=== PATIENT | female | born 1975 | race American Indian/Alaskan Native ===

== ENCOUNTER 2016-09-10 17:23 | Emergency (ER) | payer MEDICAID ==
[2016-09-10 18:57] LABS: Basophils % (Auto) 1.2 % (0.0-1.8); Eosinophils % (Auto) 2.2 % (0.0-4.3); Hematocrit 35.2 % (30.3-42.9); Hemoglobin 11.6 gm/dl (10.1-14.3); Mean Corpuscular HGB Conc 33 % (30-34); Mean Corpuscular Volume 78 fl (79-97); Platelet Count 239 K/mm3 (140-440); White Blood Count 8.3 K/mm3 (4.5-11.0)
[2016-09-10 18:58] LABS: Mean Corpuscular Hemoglobin 26 pg (28-32)
[2016-09-10 19:05] LABS: Alanine Aminotransferase 8 units/L (7-56); Albumin 4.1 g/dL (3.9-5); Albumin/Globulin Ratio 1.2 %; Alkaline Phosphatase 69 units/L (35-129); Anion Gap 18 mmol/L; Blood Urea Nitrogen 11 mg/dL (7-17); Calcium 9.2 mg/dL (8.4-10.2); Carbon Dioxide 25 mmol/L (22-30); Chloride 102.1 mmol/L (98-107); Glucose 96 mg/dL (65-100); Lipase 39 units/L (13-60); Potassium 4.2 mmol/L (3.6-5.0); Sodium 141 mmol/L (137-145); Total Protein 7.4 g/dL (6.3-8.2)
[2016-09-10 19:54] LABS: Bilirubin,Urine NEG (Negative); Blood,Urine NEG (Negative); Ketones,Urine NEG (Negative); Leukocyte Esterase,Urine NEG (Negative); Mucus,Urine FEW /HPF; Nitrite,Urine NEG (Negative); Protein,Urine <15 mg/dL mg/dL (Negative); Urobilinogen,Urine < 2.0 mg/dL (<2.0)
--- NOTE | 2016-09-10 23:18 | Emergency Department Report ---
ED Abdominal Pain HPI - General Chief Complaint: Abdominal Pain Stated Complaint: ABD PAIN/LIGHT HEADED/VAG DISCHARGE Time Seen by Provider: 09/10/16 22:23 Source: patient, RN notes reviewed Mode of arrival: Ambulatory Limitations: No Limitations - History of Present Illness Initial Comments: This is a 41-year-old female. She is previously unknown to me. She does not have a local primary care doctor. She is being treated empirically for seizures , but does not have a formal diagnosis of epilepsy. She also has a history of asthma. The patient presents to the ER with bilateral lower quadrant abdominal pain. The pain started on Thursday night. It is constant. It is sharp in nature. It increases with palpation and decreases with rest. There is no nausea, vomiting or diarrhea. There are no irritative or obstructive urinary symptoms. No fevers or chills. No chest pain or shortness of breath. Positive new onset vaginal discharge. She is sexually active with a male partner, who intermittently uses condoms. MD Complaint: abdominal pain -: Gradual Location: LLQ, RLQ Radiation: none Migration to: no migration Severity: mild Severity scale (0 -10): 7 Quality: cramping Consistency: constant Improves With: rest Worsens With: movement - Related Data Home Medications Medication Instructions Recorded Confirmed Last Taken ALBUTEROL NEB's [Proventil] 2.5 mg IH TID PRN 09/10/16 09/10/16 08/23/16 00:00 Divalproex Sodium [Divalproex 500 mg PO BID 09/10/16 09/10/16 09/10/16 08:00 Sodium ER] Zonisamide 100 mg PO DAILY 09/10/16 09/10/16 09/09/16 21:00 Previous Rx's Medication Instructions Recorded Last Taken Type Dicyclomine [Bentyl] 10 mg PO QID PRN #20 capsule 09/11/16 Unknown Rx Doxycycline [Vibramycin] 100 mg PO Q12HR #28 capsule 09/11/16 Unknown Rx Ondansetron [Zofran Odt] 4 mg PO QID PRN #20 tab.rapdis 09/11/16 Unknown Rx oxyCODONE [Roxicodone] 5 mg PO Q6HR PRN #15 tablet 09/11/16 Unknown Rx Allergies Allergy/AdvReac Type Severity Reaction Status Date / Time aspirin Allergy Anaphylaxis Verified 07/19/17 23:00 meperidine HCl [From Demerol] Allergy Anaphylaxis Verified 09/10/16 23:00 ED Review of Systems ROS: Stated complaint: ABD PAIN/LIGHT HEADED/VAG DISCHARGE Other details as noted in HPI Constitutional: denies: fever Eyes: denies: vision change ENT: denies: epistaxis Respiratory: denies: cough Cardiovascular: denies: chest pain Gastrointestinal: abdominal pain Genitourinary: discharge Musculoskeletal: denies: arthralgia Skin: denies: lesions Neurological: denies: weakness ED Past Medical Hx - Past Medical History Previous Medical History?: Yes Hx Seizures: Yes Hx Asthma: Yes - Surgical History Past Surgical History?: Yes Additional Surgical History: x 3 - Social History Smoking Status: Current Every Day Smoker Substance Use Type: None - Medications Home Medications: Home Medications Medication Instructions Recorded Confirmed Last Taken Type ALBUTEROL NEB's [Proventil] 2.5 mg IH TID PRN 09/10/16 09/10/16 08/23/16 00:00 History Divalproex Sodium [Divalproex 500 mg PO BID 09/10/16 09/10/16 09/10/16 08:00 History Sodium ER] Zonisamide 100 mg PO DAILY 09/10/16 09/10/16 09/09/16 21:00 History Dicyclomine [Bentyl] 10 mg PO QID PRN #20 capsule 09/11/16 Unknown Rx Doxycycline [Vibramycin] 100 mg PO Q12HR #28 capsule 09/11/16 Unknown Rx Ondansetron [Zofran Odt] 4 mg PO QID PRN #20 tab.rapdis 09/11/16 Unknown Rx oxyCODONE [Roxicodone] 5 mg PO Q6HR PRN #15 tablet 09/11/16 Unknown Rx ED Physical Exam - General Limitations: No Limitations General appearance: alert, in no apparent distress - Head Head exam: Present: atraumatic, normocephalic - Eye Eye exam: Present: normal appearance, EOMI. Absent: nystagmus - ENT ENT exam: Present: normal exam, normal orophraynx, mucous membranes moist, normal external ear exam - Neck Neck exam: Present: normal inspection, full ROM. Absent: tenderness, meningismus - Respiratory Respiratory exam: Present: normal lung sounds bilaterally. Absent: respiratory distress, wheezes, rales, rhonchi, stridor, chest wall tenderness - Cardiovascular Cardiovascular Exam: Present: regular rate, normal rhythm, normal heart sounds. Absent: bradycardia, tachycardia, irregular rhythm, systolic murmur, diastolic murmur, rubs, gallop - GI/Abdominal GI/Abdominal exam: Present: soft, normal bowel sounds. Absent: distended, tenderness, guarding, rebound, rigid, pulsatile mass - External exam: Present: normal external exam Speculum exam: Present: normal speculum exam, cervical discharge. Absent: vaginal bleeding, foreign body Bi-manual exam: Present: cervical motion tendernes, adnexal tenderness, other ( escorted by ER nurse EVIN [place]) - Extremities Exam Extremities exam: Present: normal inspection, full ROM, normal capillary refill. Absent: pedal edema, joint swelling, calf tenderness - Back Exam Back exam: Present: normal inspection, full ROM. Absent: tenderness, CVA tenderness (R), CVA tenderness (L), muscle spasm, paraspinal tenderness, vertebral tenderness - Neurological Exam Neurological exam: Present: alert, oriented X3, normal gait, other (Extraocular movements intact. Tongue midline. No facial droop. Facial sensation intact to light touch in the V1, V2, V3 distribution bilaterally. 5 and 5 strength in 4 extremities.. Sensation is intact to light touch in 4 extremities.). Absent : motor sensory deficit - Psychiatric Psychiatric exam: Present: normal affect, normal mood - Skin Skin exam: Present: warm, dry, intact, normal color. Absent: rash ED Course Vital Signs 09/10/16 09/10/16 09/11/16 18:20 22:22 00:38 Temperature 98.4 F Pulse Rate 96 H 92 H 94 H Respiratory 16 16 20 Rate Blood Pressure 160/86 Blood Pressure 135/88 143/78 [Right] O2 Sat by Pulse 100 100 99 Oximetry 09/11/16 02:55 Temperature Pulse Rate 65 Respiratory 16 Rate Blood Pressure Blood Pressure 105/49 [Right] O2 Sat by Pulse 99 Oximetry - Reevaluation(s) Reevaluation #1: 09/10/16 23:18 Filled ID Written Drug QTY Days Prescriber Rx # Pharmacy * Refills MME/D Pymt Type LEGAL TRANSCRIPTIONIST 08/19/2016 1 08/19/2016 HYDROCODON-ACETAMINOPHN 10-325 14.0 3 AA [facility] [id number] JUNIE ([id number]) 0 46.667 Medicaid G ED Medical Decision Making - Lab Data Result diagrams: 09/10/16 18:27 09/10/16 18:27 Vital Signs 09/10/16 09/10/16 09/11/16 18:20 22:22 00:38 Temperature 98.4 F Pulse Rate 96 H 92 H 94 H Respiratory 16 16 20 Rate Blood Pressure 160/86 Blood Pressure 135/88 143/78 [Right] O2 Sat by Pulse 100 100 99 Oximetry Lab Results 09/10/16 09/10/16 09/10/16 Range/Units 18:27 18:27 19:30 WBC 8.3 (4.5-11.0) K/mm3 RBC 4.50 (3.65-5.03) M/mm3 Hgb 11.6 (10.1-14.3) gm/dl Hct 35.2 (30.3-42.9) % MCV 78 L (79-97) fl MCH 26 L (28-32) pg MCHC 33 (30-34) % RDW 17.0 H (13.2-15.2) % Plt Count 239 (140-440) K/mm3 Lymph % (Auto) 30.6 (13.4-35.0) % [place] % (Auto) 12.8 H (0.0-7.3) % Eos % (Auto) 2.2 (0.0-4.3) % Baso % (Auto) 1.2 (0.0-1.8) % Lymph # 2.5 (1.2-5.4) K/mm3 [place] # 1.1 H (0.0-0.8) K/mm3 Eos # 0.2 (0.0-0.4) K/mm3 Baso # 0.1 (0.0-0.1) K/mm3 Seg Neutrophils % 53.2 (40.0-70.0) % Seg Neutrophils # 4.4 (1.8-7.7) K/mm3 Sodium 141 (137-145) mmol/L Potassium 4.2 (3.6-5.0) mmol/L Chloride 102.1 (98-107) mmol/L Carbon Dioxide 25 (22-30) mmol/L Anion Gap 18 mmol/L BUN 11 (7-17) mg/dL Creatinine 1.0 (0.7-1.2) mg/dL Estimated GFR > 60 ml/min BUN/Creatinine Ratio 11.00 % Glucose 96 (65-100) mg/dL Calcium 9.2 (8.4-10.2) mg/dL Total Bilirubin 0.30 (0.1-1.2) mg/dL AST 8 (5-40) units/L ALT 8 (7-56) units/L Alkaline Phosphatase 69 (35-129) units/L Total Protein 7.4 (6.3-8.2) g/dL Albumin 4.1 (3.9-5) g/dL Albumin/Globulin Ratio 1.2 % Lipase 39 (13-60) units/L Urine Color Yellow (Yellow) Urine Turbidity Clear (Clear) Urine pH 5.0 (5.0-7.0) Ur Specific [place] 1.021 (1.003-1.030) Urine Protein <15 mg/dl (Negative) mg/dL Urine Glucose (UA) Neg (Negative) mg/dL Urine Ketones Neg (Negative) mg/dL Urine Blood Neg (Negative) Urine Nitrite Neg (Negative) Urine Bilirubin Neg (Negative) Urine Urobilinogen < 2.0 (<2.0) mg/dL Ur Leukocyte Esterase Neg (Negative) Urine WBC (Auto) 3.0 (0.0-6.0) /HPF Urine RBC (Auto) 3.0 (0.0-6.0) /HPF U Epithel Cells (Auto) 2.0 (0-13.0) /HPF Urine Mucus Few /HPF Urine HCG, Qual (Negative) 09/10/16 Range/Units Unknown WBC (4.5-11.0) K/mm3 RBC (3.65-5.03) M/mm3 Hgb (10.1-14.3) gm/dl Hct (30.3-42.9) % MCV (79-97) fl MCH (28-32) pg MCHC (30-34) % RDW (13.2-15.2) % Plt Count (140-440) K/mm3 Lymph % (Auto) (13.4-35.0) % [place] % (Auto) (0.0-7.3) % Eos % (Auto) (0.0-4.3) % Baso % (Auto) (0.0-1.8) % Lymph # (1.2-5.4) K/mm3 [place] # (0.0-0.8) K/mm3 Eos # (0.0-0.4) K/mm3 Baso # (0.0-0.1) K/mm3 Seg Neutrophils % (40.0-70.0) % Seg Neutrophils # (1.8-7.7) K/mm3 Sodium (137-145) mmol/L Potassium (3.6-5.0) mmol/L Chloride (98-107) mmol/L Carbon Dioxide (22-30) mmol/L Anion Gap mmol/L BUN (7-17) mg/dL Creatinine (0.7-1.2) mg/dL Estimated GFR ml/min BUN/Creatinine Ratio % Glucose (65-100) mg/dL Calcium (8.4-10.2) mg/dL Total Bilirubin (0.1-1.2) mg/dL AST (5-40) units/L ALT (7-56) units/L Alkaline Phosphatase (35-129) units/L Total Protein (6.3-8.2) g/dL Albumin (3.9-5) g/dL Albumin/Globulin Ratio % Lipase (13-60) units/L Urine Color (Yellow) Urine Turbidity (Clear) Urine pH (5.0-7.0) Ur Specific [place] (1.003-1.030) Urine Protein (Negative) mg/dL Urine Glucose (UA) (Negative) mg/dL Urine Ketones (Negative) mg/dL Urine Blood (Negative) Urine Nitrite (Negative) Urine Bilirubin (Negative) Urine Urobilinogen (<2.0) mg/dL Ur Leukocyte Esterase (Negative) Urine WBC (Auto) (0.0-6.0) /HPF Urine RBC (Auto) (0.0-6.0) /HPF U Epithel Cells (Auto) (0-13.0) /HPF Urine Mucus /HPF Urine HCG, Qual Negative (Negative) - Radiology Data Radiology results: report reviewed, image reviewed - Medical Decision Making Differential diagnosis: Ovarian cyst, ovarian torsion, pelvic inflammatory disease, constipation, appendicitis Assessment and plan: 41-year-old female with new onset lower abdominal pain, cervical motion tenderness, bilateral adnexal tenderness. Pelvic ultrasound demonstrates bilateral ovarian vascular flow, no discrete uterine lesions, prominent ovarian cyst. Laboratory studies reviewed and are unremarkable. CT scan of the abdomen and pelvis is pending. Pelvic inflammatory disease is currently the working diagnosis. I have looked up the patient's on the [place] prescription drug database, and she has had only 1 narcotic prescription filled within the past 2 years that I can tell. Critical care attestation.: If time is entered above; I have spent that time in minutes in the direct care of this critically ill patient, excluding procedure time. ED Disposition Clinical Impression: Abdominal pain Disposition: DC-01 TO HOME OR SELFCARE Is pt being admited?: No Does the pt Need Aspirin: No Condition: Good Instructions: Pelvic Inflammatory Disease (ED) Additional Instructions: As we discussed, your laboratory studies appeared to be within normal limits. You are not . The CAT scan your abdomen/pelvis did not demonstrate any acute disease or pathology that would require emergency surgery, or antibiotic therapy. The CT scan demonstrated an incidental stone within the biliary system, and this should be followed up by a visiting nurse within the next [address] Cool is a local visiting nurse. Avoid consumption of heavy foods, spicy foods, rich foods and fatty foods. Given all this, you'll be treated empirically for disease called pelvic inflammatory disease. We typically treat young females with unexplained lower abdominal pain to protect your ability to have children safely in the future. Cultures were sent today, and results will be available next 3-5 days. Please have your primary care doctor call the medical records department to obtain your culture results. Take the antibiotic therapy as directed. Take the nausea medication and pain medication as directed. I recommend outpatient testing for sexually transmitted diseases, including hepatitis, syphilis and HIV. I also recommend that you abstain from sexual activity until you have completed her antibiotic therapy, a physician states that it is safe for you to resume sexual activity, and any partners that you have been sexually active with have been tested/treated/evaluated for sexual transmitted diseases. Please follow-up with physician within 3-5 days. I recommend that you return to the ER right away with worsening pain, migration of pain, intractable nausea/vomiting, inability tolerate liquid feeds. Prescriptions: Dicyclomine [Bentyl] 10 mg PO QID PRN #20 capsule PRN Reason: Pain Doxycycline [Vibramycin] 100 mg PO Q12HR #28 capsule Ondansetron [Zofran Odt] 4 mg PO QID PRN #20 tab.rapdis PRN Reason: Nausea oxyCODONE [Roxicodone] 5 mg PO Q6HR PRN #15 tablet PRN Reason: Pain Referrals: [facility] [Provider Group] - 3-5 Days [facility] [Provider Group] - 3-5 Days CHAIRA COOL MD [Staff Physician] - 3-5 Days [facility]IMARY [facility] [Primary Care Provider] - 3-5 Days
[2016-09-10] MEDS ORDERED: ZOFRAN IV ONE (23:46)
[2016-09-10] MEDS ORDERED: MORPHINE IV ONE (23:46)
[2016-09-10] MEDS ORDERED: NACL 0.9% 1000 ML 1,000 ML IV ONE (23:46)
[2016-09-11] MEDS ORDERED: NACL ONE (00:05)
--- NOTE | 2016-09-11 00:42 | Ultrasound Report ---
FINAL REPORT EXAM: US PELVIS DUPLEX DOPPLER COMP HISTORY: pid vs cyst vs appy. pelvic pain COMPARISON: None available. TECHNIQUE: Several real-time grayscale and color Doppler images were obtained. Transabdominal and transvaginal exam. Spectral analysis. FINDINGS: The uterus measures 10.7 x 5.5 x 6.2 centimeters. Endometrial stripe measures 6 millimeters. This is within normal limits. No discrete uterine lesions. The right ovary measures 3.6 x 5.1 x 4.5 centimeters. Within the right ovary, there is a prominent cystic structure measuring 5.1 x 3.5 x 4.0 centimeters. This may have some proteinaceous debris. Left ovary measures 2.7 x 2.0 x 2.3 centimeters. There is vascular flow to the bilateral ovaries with spectral analysis demonstrating arterial waveforms. No adnexal masses. No free fluid. IMPRESSION: Prominent right ovarian cyst measuring 5.1 centimeters. This may have a small amount of proteinaceous debris. Vascular flow to the bilateral ovaries. No adnexal masses. No discrete uterine lesions.
--- NOTE | 2016-09-11 01:35 | Cat Scan Report ---
FINAL REPORT EXAM: CT ABDOMEN PELVIS W CON HISTORY: abd pain with discharge x 1 week pid vs cyst vs appy COMPARISON: Pelvic ultrasound from the same date. Additional sagittal and coronal reformatted images were obtained. TECHNIQUE: Contiguous axial images were obtained. Administration of IV contrast given per institution protocol. Images submitted for interpretation. 100 cc Omnipaque 350. FINDINGS: Lung bases are clear. No calcified gallstones. Within the mid to distal common bile duct there is a radiopaque calculus measuring 7 x 4 millimeters in axial dimension. This causes mild dilatation the common bile duct measuring up to 9 millimeters. No inflammatory changes the gallbladder. No pancreatic ductal dilatation. Liver, spleen, pancreas and adrenal glands are grossly unremarkable. No solid renal lesion. No hydronephrosis. Aorta and IVC are normal in caliber. Urinary bladder, uterus, left ovary grossly unremarkable. Re-demonstration of right ovarian cystic structure measuring 5.6 x 5.1 centimeters. This has a simple appearance by CT. There are few pelvic phleboliths. No free fluid or lymphadenopathy in the pelvic cavity. The appendix is normal in caliber. Moderate stool in the colon. Large and small bowel loops normal in caliber. Bony pelvis and lumbar spine are grossly intact. IMPRESSION: 7 x 4 millimeter choledocholith in the mid to distal common bile duct causing mild dilatation of the biliary tree. No calcified gallstones are gross inflammatory changes the gallbladder. Re-demonstration of 5.6 x 5.1 centimeter right ovarian cystic structure. This has a simple appearance by CT. No other acute findings. Large and small bowel loops normal in caliber. The appendix is normal in caliber.
[2016-09-11] MEDS ORDERED: VIBRAMYCIN PO ONE (02:18)
[2016-09-11] MEDS ORDERED: NORCO 5/325 PO ONE (02:18)
--- NOTE | 2016-09-11 02:33 | Event Note ---
Date: 09/11/16 Due to technical issues, I am unable to amend and adjust the current medical chart. CT scan demonstrates no evidence of tubo-ovarian abscess, or appendicitis. The patient reports her pain is improved. She is tolerating liquid feeds. She is afebrile, tachycardia has resolved, and belly soft on repeat examination. CT scan did demonstrate incidental choledochal stone, without transaminitis, pancreatitis. This finding was discussed with the automation application engineer on-call, Dr. Gavin. The patient does not have any right upper quadrant pain, and her laboratory studies regarding the liver and biliary system are unremarkable. This is most likely an incidental finding. Dr. Gavin agrees with the patient is suitable to follow-up as an outpatient this incidental finding. The patient will be discharged with pain medication, nausea medication, and she'll be treated him. Pelvic inflammatory disease. Return precautions are reviewed. Vital Signs 09/10/16 09/10/16 09/11/16 18:20 22:22 00:38 Temperature 98.4 F Pulse Rate 96 H 92 H 94 H Respiratory 16 16 20 Rate Blood Pressure 160/86 Blood Pressure 135/88 143/78 [Right] O2 Sat by Pulse 100 100 99 Oximetry Lab Results 09/10/16 09/10/16 09/10/16 Range/Units 18:27 18:27 19:30 WBC 8.3 (4.5-11.0) K/mm3 RBC 4.50 (3.65-5.03) M/mm3 Hgb 11.6 (10.1-14.3) gm/dl Hct 35.2 (30.3-42.9) % MCV 78 L (79-97) fl MCH 26 L (28-32) pg MCHC 33 (30-34) % RDW 17.0 H (13.2-15.2) % Plt Count 239 (140-440) K/mm3 Lymph % (Auto) 30.6 (13.4-35.0) % [place] % (Auto) 12.8 H (0.0-7.3) % Eos % (Auto) 2.2 (0.0-4.3) % Baso % (Auto) 1.2 (0.0-1.8) % Lymph # 2.5 (1.2-5.4) K/mm3 [place] # 1.1 H (0.0-0.8) K/mm3 Eos # 0.2 (0.0-0.4) K/mm3 Baso # 0.1 (0.0-0.1) K/mm3 Seg Neutrophils % 53.2 (40.0-70.0) % Seg Neutrophils # 4.4 (1.8-7.7) K/mm3 Sodium 141 (137-145) mmol/L Potassium 4.2 (3.6-5.0) mmol/L Chloride 102.1 (98-107) mmol/L Carbon Dioxide 25 (22-30) mmol/L Anion Gap 18 mmol/L BUN 11 (7-17) mg/dL Creatinine 1.0 (0.7-1.2) mg/dL Estimated GFR > 60 ml/min BUN/Creatinine Ratio 11.00 % Glucose 96 (65-100) mg/dL Calcium 9.2 (8.4-10.2) mg/dL Total Bilirubin 0.30 (0.1-1.2) mg/dL AST 8 (5-40) units/L ALT 8 (7-56) units/L Alkaline Phosphatase 69 (35-129) units/L Total Protein 7.4 (6.3-8.2) g/dL Albumin 4.1 (3.9-5) g/dL Albumin/Globulin Ratio 1.2 % Lipase 39 (13-60) units/L Urine Color Yellow (Yellow) Urine Turbidity Clear (Clear) Urine pH 5.0 (5.0-7.0) Ur Specific [place] 1.021 (1.003-1.030) Urine Protein <15 mg/dl (Negative) mg/dL Urine Glucose (UA) Neg (Negative) mg/dL Urine Ketones Neg (Negative) mg/dL Urine Blood Neg (Negative) Urine Nitrite Neg (Negative) Urine Bilirubin Neg (Negative) Urine Urobilinogen < 2.0 (<2.0) mg/dL Ur Leukocyte Esterase Neg (Negative) Urine WBC (Auto) 3.0 (0.0-6.0) /HPF Urine RBC (Auto) 3.0 (0.0-6.0) /HPF U Epithel Cells (Auto) 2.0 (0-13.0) /HPF Urine Mucus Few /HPF Urine HCG, Qual (Negative) 09/10/16 Range/Units Unknown WBC (4.5-11.0) K/mm3 RBC (3.65-5.03) M/mm3 Hgb (10.1-14.3) gm/dl Hct (30.3-42.9) % MCV (79-97) fl MCH (28-32) pg MCHC (30-34) % RDW (13.2-15.2) % Plt Count (140-440) K/mm3 Lymph % (Auto) (13.4-35.0) % [place] % (Auto) (0.0-7.3) % Eos % (Auto) (0.0-4.3) % Baso % (Auto) (0.0-1.8) % Lymph # (1.2-5.4) K/mm3 [place] # (0.0-0.8) K/mm3 Eos # (0.0-0.4) K/mm3 Baso # (0.0-0.1) K/mm3 Seg Neutrophils % (40.0-70.0) % Seg Neutrophils # (1.8-7.7) K/mm3 Sodium (137-145) mmol/L Potassium (3.6-5.0) mmol/L Chloride (98-107) mmol/L Carbon Dioxide (22-30) mmol/L Anion Gap mmol/L BUN (7-17) mg/dL Creatinine (0.7-1.2) mg/dL Estimated GFR ml/min BUN/Creatinine Ratio % Glucose (65-100) mg/dL Calcium (8.4-10.2) mg/dL Total Bilirubin (0.1-1.2) mg/dL AST (5-40) units/L ALT (7-56) units/L Alkaline Phosphatase (35-129) units/L Total Protein (6.3-8.2) g/dL Albumin (3.9-5) g/dL Albumin/Globulin Ratio % Lipase (13-60) units/L Urine Color (Yellow) Urine Turbidity (Clear) Urine pH (5.0-7.0) Ur Specific [place] (1.003-1.030) Urine Protein (Negative) mg/dL Urine Glucose (UA) (Negative) mg/dL Urine Ketones (Negative) mg/dL Urine Blood (Negative) Urine Nitrite (Negative) Urine Bilirubin (Negative) Urine Urobilinogen (<2.0) mg/dL Ur Leukocyte Esterase (Negative) Urine WBC (Auto) (0.0-6.0) /HPF Urine RBC (Auto) (0.0-6.0) /HPF U Epithel Cells (Auto) (0-13.0) /HPF Urine Mucus /HPF Urine HCG, Qual Negative (Negative)
[2016-09-11 02:55] VITALS: BP 105/49
[2016-09-11] MEDS ORDERED: ROCEPHIN 250 MG in NACL 0.9% 50 ML IV ONE (03:00)
== END 2016-09-11 03:29 | disposition home or self-care (01) ==
LOC: ED 17:23
DX: R10.9 Unspecified abdominal pain (principal); J45.909 Unspecified asthma, uncomplicated; F17.200 Nicotine dependence, unspecified, uncomplicated; Z88.6 Allergy status to analgesic agent; Z88.8 Allergy status to other drugs, medicaments and biological substances
CPT/HCPCS: 36415; 74177; 76830; 80053; 81001; 81025; 83690; 85025; 87210; 87591; 93975; 96361; 96365; 96375; 99285; J0696; J2270; J2405; J7030; Q9967